=== PATIENT | female | born 1970 | race Caucasian/White ===

== ENCOUNTER 2017-02-22 15:37 | Emergency (ER) | payer BC ==
[~2017-02-22] VITALS: Ht 160 cm; Wt 151.6 kg
[~2017-02-22 15:37] MED LIST: AMOXICILLIN875 MG PO; ASPIRIN81 MG PO; ATIVAN1 MG PO; CELEBREX100 M1 PO; CIPROFLOXACN500 MG PO; CLINDAGEL1 % EX; CYMBALTA60 MG PO; FLEXERIL5 M1 PO; FLONASE NASAL50 MCG; FLUOXETINE10 M2 PO; KEFLEX500 MG PO; KETOCONAZOLE2 % EX; LEVEMIR1000 UNITS; LEVOTHYROXIN100 MCG PO; LOVASTATIN40 MG PO; MECLIZINE25 MG PO; MEDROXYPROGESTE10 MG PO; MELOXICAM7.5 MG PO; METFORMIN500 M1 OR; MUCINEX600 MG OR; MUCINEX600 MG PO; MULTI VIT PO; NAPROSYN500 MG OR; NESINA25 MG; NO HOME MEDS; NOVOLOG100 IU/1 M SC; PROGESTERONE200 MG PO; TAM75CAP PO; TESSALON200 MG OR; TRESIBA FL100 UNIT/M SC; TRULICITY1.5 MG/0.5 IJ; VENLAFAXINE75 M1 PO; VICTOZA18 MG/3 ML SC; ZITHROMAX250 MG PO
[2017-02-22 16:38] LABS: HEMATOCRIT 42.3 % (37.0-47.0); HEMOGLOBIN 13.9 g/dl (12.0-16.0); IMMATURE GRANULOCYTES 1.2 % (0.0-1.0); MEAN CELL VOLUME 81.7 fL CALC (80.0-100.0); MEAN CORPUSCULAR HGB 26.8 pG CALC (26.0-32.0); MEAN CORPUSCULAR HGB CONC 32.9 g/L CALC (32.0-36.0); NEUT# 10.59 thou/uL (2.00-7.15); RED BLOOD COUNT 5.18 mill/uL (4.20-5.60); RED CELL DISTRI WIDTH 14.3 % (11.5-15.5)
[2017-02-22 16:52] LABS: ALBUMIN 4.3 g/dL (3.2-5.0); ALKALINE PHOSPHATASE 131 u/l (38-126); ANION GAP 18 (6-22 (CALC)); BILIRUBIN, TOTAL 0.7 mg/dL (0.0-1.4); BUN 17 mg/dL (7-17); BUN/CREATININE RATIO 28 (12-20 (CALC)); CALCIUM 9.2 mg/dL (8.4-10.2); CARBON DIOXIDE 28 mmol/l (22-30); CHLORIDE 98 mmol/l (95-108); CREATININE 0.6 mg/dL (0.5-1.0); GFR > 60 ML/MIN (>=60 (CALC)); GFR FOR AFR.AMER. > 60 ML/MIN (>=60 (CALC)); GLUCOSE 173 mg/dL (65-105); POTASSIUM 4.2 mmol/l (3.5-5.1); SGOT/AST 91 u/l (14-36); SGPT/ALT 81 u/l (9-52); SODIUM 140 mmol/l (137-146); TOTAL PROTEIN 8.6 g/dL (6.3-8.2)
[2017-02-22 17:02] LABS: MYOGLOBIN 23 ng/mL (0 - 62)
[2017-02-22] MEDS ORDERED: LORTAB 10-325 M1 TAB PO (18:42)
[2017-02-22 18:55] VITALS: BP 118/70
== END 2017-02-22 19:00 | disposition home or self-care (01) | DRG 605 ==
LOC: ED 15:37
PROVIDERS: Emergency Medicine
DX: S20.212A Contusion of left front wall of thorax, initial encounter (principal); E03.9 Hypothyroidism, unspecified; E11.9 Type 2 diabetes mellitus without complications; E78.00 Pure hypercholesterolemia, unspecified; X58.XXXA Exposure to other specified factors, initial encounter